=== PATIENT | male | born 2000 | race Caucasian/White ===

== ENCOUNTER 2025-10-08 14:44 | Emergency (ER) | payer MEDICAID ==
[~2025-10-08] VITALS: Ht 162.6 cm; Wt 66.2 kg
[2025-10-08 15:19] LABS: PLATELET COUNT (AUTO) 186 K/uL (150-450); RED BLOOD CELL COUNT(AUTO) 5.12 MIL/uL (4.5-6.0); RED CELL DISTRIBUTION WIDTH 13.7 % (11.5-15.0); WHITE BLOOD COUNT (AUTO) 6.1 K/uL (4.3-11.0)
[2025-10-08 15:27] LABS: CALCIUM, SERUM 8.7 mg/dL (8.5-10.1); CREATININE 1.1 mg/dL (0.6-1.3); SODIUM SERUM 140 mmol/L (136-145); UREA NITROGEN, BLOOD 14 mg/dL (7-18)
[2025-10-08] MEDS ORDERED: PANT20TA2 PO (16:53)
[2025-10-08] MEDS ORDERED: ONDA4TAB11 PO (16:53)
[2025-10-08 17:14] VITALS: BP 120/80; TEMP 98.1; O2SAT 98
== END 2025-10-08 17:15 | disposition home or self-care (01) ==
LOC: ER 14:46
DX: R07.89 Other chest pain (principal); F17.200 Nicotine dependence, unspecified, uncomplicated
CPT/HCPCS: 36415; 71045-TC; 80048-TC; 84484-TC; 85025-TC